=== PATIENT | male | born 1955 | race Caucasian/White ===

== ENCOUNTER 2019-01-31 07:49 | Inpatient (IN) | payer OTHER ==
[~2019-01-31] VITALS: Ht 162.6 cm; Wt 81.6 kg
[2019-01-31] MEDS ORDERED: LEVO25TA7 PO (08:55)
[2019-01-31] MEDS ORDERED: AMLO5TAB4 PO (08:55)
[2019-01-31] MEDS ORDERED: ATEN-168 PO (08:55)
[2019-01-31] MEDS ORDERED: LISI-600 PO ×2 (08:55→09:01)
[2019-01-31] MEDS ORDERED: METO-442 PO (09:00)
[2019-01-31] MEDS ORDERED: POLYMYXIN 500,000/BACIT.10,000 UNITS in NS IRR 1 L IR ONE (09:31)
[2019-01-31] MEDS ORDERED: BUPIVACAINE LIPOSOME/PF 266 MG/20 ML VIAL INFIL ONE (09:34)
[2019-01-31] MEDS ORDERED: MIDAZOLAM HCL 5 MG/5 ML VIAL IVP ONE (10:10)
[2019-01-31] MEDS ORDERED: BUPIVACAINE /EPINEPHRINE/PF 0.25% 30 ML VIAL INJ ONE (10:10)
[2019-01-31] MEDS ORDERED: ROCURONIUM BROMIDE 10 MG/ML (ZEMURON) IV ONE (10:10)
[2019-01-31] MEDS ORDERED: PROPOFOL 200MG/ 20ML VIAL (DIPRIVAN) IV ONE (10:10)
[2019-01-31] MEDS ORDERED: GLYCOPYRROLATE 0.2 MG/ML VIAL IJ ONE (10:10)
[2019-01-31] MEDS ORDERED: WATER FOR IRRIGATION,STERILE 1,000 ML IRRIG.SOLN IR ONE (10:10)
[2019-01-31] MEDS ORDERED: CLINDAMYCIN PHOSPHATE 900 mg/50mL D5W IV ONE (10:10)
[2019-01-31] MEDS ORDERED: fentaNYL CITRATE/PF 100 MCG/2 ML AMP IVP ONE (10:10)
[2019-01-31] MEDS ORDERED: NS IRRIG SOLN 1000 ML IR ONE (10:10)
[2019-01-31] MEDS ORDERED: NEOSTIGMINE METHYLSULFATE 1 MG/ML, 10 ML VIAL IVP ONE (10:10)
[2019-01-31] MEDS ORDERED: SEVOFLURANE 15 MIN GAS INH ONE (10:10)
[2019-01-31] MEDS ORDERED: LIDOCAINE/EPI 1% 1:100000 20 ML VIAL INJ ONE (10:10)
[2019-01-31] MEDS ORDERED: ePHEDrine sulfate 50 MG/ML VIAL IVP ONE (10:10)
[2019-01-31] MEDS ORDERED: LR 1,000 ML IV.SOLN IV ONE (10:10)
[2019-01-31] MEDS ORDERED: NALBUPHINE HCL 10 MG/ML AMP IVP PRN (11:30)
[2019-01-31] MEDS ORDERED: NALOXONE HCL 0.4 MG/ML AMP (NARCAN) IVP PRN (11:30)
[2019-01-31] MEDS ORDERED: DIPHENHYDRAMINE INJ 50 MG/ML VIAL IVP PRN (11:30)
[2019-01-31] MEDS ORDERED: ONDANSETRON HCL 4 MG/2 ML VIAL IVP PRN (11:30)
[2019-01-31] MEDS ORDERED: fentaNYL CITRATE/PF 100 MCG/2 ML AMP IVP PRN ×2 (11:30)
[2019-01-31] MEDS: FENT2mCg/mL-ROPIVA0.2%/NS EPID 200 ML EP SCH (12:00)
[2019-01-31] MEDS ORDERED: FENT2mCg/mL-ROPIVA0.2%/NS EPID 200 ML EP SCH (12:00)
[2019-01-31] MEDS ORDERED: FENT2mCg/mL-ROPIVA0.2%/NS EPID 200 ML EP ONE (12:48)
[2019-01-31] MEDS: LR 1,000 ML IV SCH (16:27)
[2019-01-31] MEDS ORDERED: MORPHINE 4 MG/ML INJ. SYRINGE IVP PRN (16:30)
[2019-01-31] MEDS ORDERED: ACETAMINOPHEN 325 MG TABLET PO PRN ×2 (16:30)
[2019-01-31 18:15] VITALS: BP_SYST 120
[2019-01-31 20:05] VITALS: BP_SYST 125
[2019-02-01 01:35] VITALS: BP_SYST 128
[2019-02-01] MEDS: LR 1,000 ML IV SCH ×3 (01:58→20:57)
[2019-02-01 06:31] LABS: BASOPHILS % (AUTO) 0.1 % (0.0-2.0); EOSINOPHILS % (AUTO) 0.1 % (0.0-4.0); HEMATOCRIT 44.6 % (36-54); HEMOGLOBIN 14.8 g/dL (14.0-18.0); LYMPHOCYTES # (AUTO) 1.6 K/uL (1.0-5.5); LYMPHOCYTES % (AUTO) 14.6 % (20.5-51.5); MEAN CORPUSCULAR HEMOGLOBIN 29 pg (27-31); MEAN CORPUSCULAR HGB CONC 33 % (32-36); MEAN CORPUSCULAR VOLUME 88 fL (79.0-98.0); MONOCYTES # (AUTO) 0.6 K/uL (0.0-1.0); MONOCYTES % (AUTO) 5.4 % (1.7-9.3); NEUTROPHILS % (AUTO) 79.8 % (40.0-70.0); PLATELET COUNT (AUTO) 143 K/uL (130-430); RED BLOOD CELL COUNT(AUTO) 5.08 MIL/uL (4.2-6.2); RED CELL DISTRIBUTION WIDTH 14.4 % (9.0-15.0); WHITE BLOOD COUNT (AUTO) 11.3 K/uL (4.8-10.8)
[2019-02-01 06:39] LABS: CALCIUM 8.3 mg/dL (8.4-11.0); CREATININE 1.62 mg/dL (0.55-1.30); POTASSIUM 4.3 mmol/L (3.5-5.1)
[2019-02-01 08:00] VITALS: BP_SYST 128
[2019-02-01] MEDS: FENT2mCg/mL-ROPIVA0.2%/NS EPID 200 ML EP SCH (08:11)
[2019-02-01 12:34] VITALS: BP_SYST 163
[2019-02-01] MEDS: ONDANSETRON HCL 4 MG/2 ML VIAL IVP PRN (12:42)
[2019-02-01 16:45] VITALS: BP_SYST 142
[2019-02-01 20:53] VITALS: BP_SYST 129
[2019-02-01] MEDS: CLINDAMYCIN 600 MG in D5W 50 ML IV SCH (20:57)
[2019-02-01] MEDS ORDERED: CLINDAMYCIN 600 MG/50 ML IV ONE (21:05)
[2019-02-01] MEDS ORDERED: D5W IV ONE (21:05)
[2019-02-01] MEDS: METOPROLOL TARTRATE 50 MG TABLET PO SCH (21:15)
[2019-02-01] MEDS: LISINOPRIL 20 MG TABLET PO SCH (21:16)
[2019-02-02 00:38] VITALS: BP_SYST 138
[2019-02-02] MEDS: CLINDAMYCIN 600 MG in D5W 50 ML IV SCH ×4 (01:29→16:52)
[2019-02-02] MEDS: HYDROcodone/ACETAMIN 5-325 MG TAB (NORCO/ VICODIN) PO PRN (03:19)
[2019-02-02] MEDS: ONDANSETRON HCL 4 MG/2 ML VIAL IVP PRN ×2 (03:20→22:47)
[2019-02-02 06:27] LABS: BASOPHILS % (AUTO) 0.2 % (0.0-2.0); EOSINOPHILS % (AUTO) 0.3 % (0.0-4.0); HEMATOCRIT 45.3 % (36-54); HEMOGLOBIN 14.8 g/dL (14.0-18.0); LYMPHOCYTES % (AUTO) 10.8 % (20.5-51.5); MEAN CORPUSCULAR HEMOGLOBIN 29 pg (27-31); MEAN CORPUSCULAR HGB CONC 33 % (32-36); MEAN CORPUSCULAR VOLUME 89 fL (79.0-98.0); MONOCYTES # (AUTO) 0.7 K/uL (0.0-1.0); MONOCYTES % (AUTO) 8.3 % (1.7-9.3); NEUTROPHILS # (AUTO) 7.2 K/uL (1.8-7.7); NEUTROPHILS % (AUTO) 80.4 % (40.0-70.0); PLATELET COUNT (AUTO) 123 K/uL (130-430); RED BLOOD CELL COUNT(AUTO) 5.08 MIL/uL (4.2-6.2); RED CELL DISTRIBUTION WIDTH 14.5 % (9.0-15.0); WHITE BLOOD COUNT (AUTO) 8.9 K/uL (4.8-10.8)
[2019-02-02 06:53] LABS: ALBUMIN 2.7 g/dL (3.4-4.8); CALCIUM 8.6 mg/dL (8.4-11.0); CREATININE 1.47 mg/dL (0.55-1.30); POTASSIUM 4.1 mmol/L (3.5-5.1); TOTAL BILIRUBIN 1.4 mg/dL (0.0-1.0)
[2019-02-02 08:00] VITALS: BP_SYST 157
[2019-02-02] MEDS: LEVOTHYROXINE SODIUM 0.025 MG TABLET PO SCH (09:33)
[2019-02-02] MEDS: METOPROLOL TARTRATE 50 MG TABLET PO SCH ×2 (09:35→20:34)
[2019-02-02] MEDS: amLODIPine BESYLATE 5 MG TABLET PO SCH (09:36)
[2019-02-02] MEDS: LISINOPRIL 20 MG TABLET PO SCH ×2 (09:40→20:35)
[2019-02-02] MEDS: LR 1,000 ML IV SCH ×2 (09:41→16:53)
[2019-02-02 12:36] VITALS: BP_SYST 148
[2019-02-02 16:32] VITALS: BP_SYST 139
[2019-02-02 22:00] VITALS: BP_SYST 147
[2019-02-03] VITALS: BP_SYST 131
[2019-02-03] MEDS: CLINDAMYCIN 600 MG in D5W 50 ML IV SCH ×4 (00:36→18:03)
[2019-02-03] MEDS: LR 1,000 ML IV SCH ×2 (05:19→16:11)
[2019-02-03 08:15] VITALS: BP_SYST 152
[2019-02-03] MEDS: LEVOTHYROXINE SODIUM 0.025 MG TABLET PO SCH (09:33)
[2019-02-03] MEDS: HYDROcodone/ACETAMIN 5-325 MG TAB (NORCO/ VICODIN) PO PRN (09:34)
[2019-02-03] MEDS: LISINOPRIL 20 MG TABLET PO SCH (09:35)
[2019-02-03] MEDS: amLODIPine BESYLATE 5 MG TABLET PO SCH (09:39)
[2019-02-03] MEDS: METOPROLOL TARTRATE 50 MG TABLET PO SCH (09:40)
[2019-02-03] MEDS: ONDANSETRON HCL 4 MG/2 ML VIAL IVP PRN (09:48)
[2019-02-03 11:31] VITALS: BP_SYST 156
[2019-02-03 15:39] VITALS: BP_SYST 152
[2019-02-03] MEDS ORDERED: HYDR-4272 PO (17:48)
[2019-02-03 18:41] VITALS: BP_SYST 157
== END 2019-02-03 19:04 | disposition home or self-care (01) | DRG 331 ==
LOC: SDS 07:49 → SMU 09:45 → SDS 20:13 → STU 20:14 → UNDOFXSDCSVC 20:23 → UNDOFXSDCRRACCOM 20:23 → UNDOFXSDCACCOM 20:23 → SMU 23:23 → STU 23:23 → UNDOFXSDCSVC 23:23 → UNDOFXSDCACCOM 02-01 10:15 → UNDOFXSDCRRACCOM 02-01 10:15 → STU 02-01 11:02 → SDS 02-01 11:02 → SMU 02-01 11:15 → SDS 02-01 11:15 → SMU 02-01 11:20 → SDS 02-01 11:20 → SMU 02-02 05:12
PROVIDERS: ADMIT Surgery; ATTEND Surgery
PROC: 0WQF0ZZ Repair Abdominal Wall, Open Approach (ICD-10-PCS; 2019-01-31)
PROC: 0DNU4ZZ Release Omentum, Percutaneous Endoscopic Approach (ICD-10-PCS; 2019-01-31)
PROC: 0DN84ZZ Release Small Intestine, Percutaneous Endoscopic Approach (ICD-10-PCS; 2019-01-31)
PROC: 8E0W4CZ Robotic Assisted Procedure of Trunk Region, Percutaneous Endoscopic Approach (ICD-10-PCS; 2019-01-31)
PROC: 0DJD8ZZ Inspection of Lower Intestinal Tract, Via Natural or Artificial Opening Endoscopic (ICD-10-PCS; 2019-01-31)
PROC: 0DBM0ZZ Excision of Descending Colon, Open Approach (ICD-10-PCS; principal; 2019-01-31 10:00)
DX: Z43.3 Encounter for attention to colostomy (principal); K43.5 Parastomal hernia without obstruction or gangrene; K43.2 Incisional hernia without obstruction or gangrene; K66.0 Peritoneal adhesions (postprocedural) (postinfection)
CPT/HCPCS: 36415; 80048; 80053; 85025; 87081; 88304; 88305; 97116-GP; 97530-GP; C9290; G0378; J1200; J2250; J2270; J2405; J2704; J2710; J3010; J3490; J7060; J7120